=== PATIENT | female | born 1990 | race Caucasian/White ===

== ENCOUNTER 2016-10-14 20:47 | Emergency (ER) | payer MEDICAID ==
[~2016-10-14] VITALS: Ht 154.9 cm; Wt 53.6 kg
[2016-10-14 20:52] VITALS: BP 111/70
== END 2016-10-14 21:45 | disposition home or self-care (01) ==
LOC: ED 21:15
DX: L02.413 Cutaneous abscess of right upper limb (principal); F11.90 Opioid use, unspecified, uncomplicated
CPT/HCPCS: 99283

== ENCOUNTER 2016-10-15 15:14 | Emergency (ER) | payer MEDICAID ==
[~2016-10-15] VITALS: Ht 154.9 cm; Wt 53.9 kg
[2016-10-15 15:26] VITALS: BP 119/70
[2016-10-15] MEDS ORDERED: LIDOCAINE 1%, 20ML ONE (15:41)
[2016-10-15] MEDS ORDERED: LIDOCAINE 1%, 20ML SQ ONE (16:00)
== END 2016-10-15 16:02 | disposition home or self-care (01) ==
LOC: ED 15:50
DX: L02.413 Cutaneous abscess of right upper limb (principal); F11.20 Opioid dependence, uncomplicated
CPT/HCPCS: 10060; 99283